=== PATIENT | female | born 2000 | race Caucasian/White ===

== ENCOUNTER 2025-05-24 19:02 | Emergency (ER) | payer OTHER, SELFPAY ==
--- NOTE | ~2025-05-24 | XR_ITS ---
CLINICAL HISTORY: Coughing. pneumonia? 1 view chest x-ray Comparison: None provided Findings: No consolidation or effusion. Heart size is normal. No acute fracture. IMPRESSION: 1. No acute findings. This document has been electronically signed by: Gomez Dominguez MD on 05/24/2025 19:57:49
--- NOTE | 2025-05-24 19:05 | ECG_ITS ---
Test Reason : cp Blood Pressure : */* mmHG Vent. Rate : 78 BPM Atrial Rate : 78 BPM P-R Int : 154 ms QRS Dur : 92 ms QT Int : 364 ms P-R-T Axes : 63 67 58 degrees QTcB Int : 414 ms Normal sinus rhythm Normal ECG No previous ECGs available Referred By: Generic ED Physician Electronically Signed By: Americo Gonzales
[2025-05-24 19:11] VITALS: BP 114/63; PULSE 79; RESP 16; TEMP 36.6; O2SAT 99; BMI 28.3
--- NOTE | 2025-05-24 19:16 | ED_ITS ---
HPI - Asthma General Chief Complaint: Asthma Stated Complaint: chest pain,asthma,sob Time Seen by Provider: 05/24/25 19:33 Source: patient Mode of arrival: ambulatory Limitations: no limitations History of Present Illness ED Provider: Melita Duarte PA-C HPI Narrative: Patient is a 25 year old assigned female at with a history of asthma presenting to the emergency department today with a cough, wheezing, and chest tightness. Patient states that over the last week she has had wheezing, chest tightness, and a cough. Patient denies any other complaints at this time. Related Data Previous Rx's ?Medication ?Instructions ?Recorded albuterol sulfate 1.25 mg/3 mL 1.25 mg (3 mL) inhalati on QID PRN 05/24/25 solution for nebulization shortness of breath or wheez ing #90 mL albuterol sulfate 90 mcg/actuation 1 inh inhalation QI D PRN shortness 05/24/25 aerosol inhaler (Ventolin HFA) of breath or wheezing # 8.5 grams prednisone 20 mg tablet 40 mg (2 x 20 mg) PO DAILY C OPD 05/24/25 exacerbation 5 days #10 tabs Allergies Allergy/AdvReac Type Severity Reaction Status Date / Time benzonatate Allergy Difficulty Verified 05/24/25 19:14 Breathing peanut Allergy Rash Verified 05/24/25 19:14 Penicillins Allergy Unknown Verified 05/24/25 19:14 shellfish derived (shellfish) Allergy Rash Verified 05/24/25 19:14 topiramate Allergy Palpitation Verified 05/24/25 19:14 s Review of Systems Constitutional: Constitutional: Reports as per HPI Eyes: Eyes: Reports as per HPI ENT: Reports as per HPI Cardiovascular: Cardiovascular: Reports as per HPI Respiratory: Respiratory: Reports as per HPI Gastrointestinal: Gastrointestinal: Reports as per HPI Genitourinary: Genitourinary: Reports as per HPI Musculoskeletal: Musculoskeletal: Reports as per HPI Integumentary/Breasts: Skin/Breast: Reports as per HPI Neurologic: Reports as per HPI Psychiatric: Psychiatric: Reports as per HPI Endocrine: Endocrine: Reports as per HPI Hematologic/Lymphatic: Hematologic/Lymphatic: Reports as per HPI Allergic/Immunologic: Allergic/Immunologic: Reports as per HPI PMFSH Past Medical History Attestation statement: The following information was validated with the patient. Source: old records reviewed and nursing notes reviewed Social History Social History Smoked in Last 30 Days: No Use of substances other than those prescribed or required for medical reasons: No Advance Directives: No Advance Directives Information Provided: No Physical Exam Vital Signs: Vital Signs: Last Vital Signs Temp 98.2 F 05/24/25 20:46 Pulse 77 05/24/25 20:46 Resp 16 05/24/25 20:46 BP 124/84 05/24/25 20:46 Pulse Ox 95 05/24/25 20:46 O2 Del Method Room Air 05/24/25 20:46 BMI result Body Mass Index 28.3 Const: General: cooperative, no acute distress, alert and awake Nutritional Appearance: well nourished Orientation/consciousness: patient oriented x3 HEENT: Head: Yes normal to inspection and Yes atraumatic Ears: hearing grossly normal bilaterally and external ears normal General nose exam: Normal external nose present, no nasal discharge noted and no epistaxis Face and sinus: Yes normal facial exam, No abrasion and No laceration Mouth: Normal oral and palatal mucosa present, no drooling and no muffled voice Eyes: General: appearance normal, both eyes and all related structures Periorbital: periorbital findings normal Eyelids: Yes eyelids normal Conjunctivae: conjunctivae normal Pupils: Equal, round and reactive pupils present EOM: EOMs intact bilaterally Neck: Neck: Yes normal visual inspection and Yes full ROM Resp: Effort & Inspection: normal respiratory effort and able to speak in complete sentences Neuro: General: patient oriented x3, moves all extremities and CN's II-XI intact bilaterally Cranial nerves: Yes Equal, round and reactive pupils present Cognition (Neuro): normal cognition Extrem: General: Yes normal to inspection, Yes full ROM and Yes capillary refill normal Psych: Appearance: grossly normal Mental Status: mental status grossly normal Affect: normal affect Attitude: cooperative Thought process: Normal thought process present Thought content: Normal thought content present Insight: Good insight present (Psych) Course Course Course Narrative: RME: 25-year-old female presents to ED for coughing with 1 week and chest tightness. Patient states in his albuterol inhaler. Patient states wheezing. Chest x-ray COVID influenza strep ordered. Vital signs stable Medications Administered Discontinued Medications Generic Name Dose Route Start Last Admin Trade Name Freq PRN Reason Stop Dose Admin Albuterol Sulfate 2.5 mg/ 0 mg 05/24/25 19:48 05/24/25 19:56 Albuterol/Ipratropium 3 ml INHALE 05/24/25 19:49 5 dose ONCE ONE Administration Methylprednisolone Sodium Succinate 60 mg 05/24/25 19:32 05/24/25 19:49 Methylprednisolone Sod Succ 125 Mg/2 Ml Vial IM 05/24/25 19:33 60 mg ONCE ONE Administration Medical Decision Making Medical Decision Making [facility] Narrative: Patient is a 25 year old assigned female at with a history of asthma presenting to the emergency department today with a cough, wheezing, and chest tightness. Patient's physical exam was as noted in the physical exam portion of this note. Patient's COVID-19, influenza, and strep tests were unremarkable. Patient's chest x-ray showed no acute process. Patient's clinical presentation is most consistent with an asthma exacerbation. I explained my physical exam findings as well as all test results to the patient. I answered all questions asked by the patient. Patient received solu-medrol and a breathing treatment which she states helped her symptoms significantly. I stressed the importance of the patient taking her medication as directed (either prescribed or as the over the counter packaging recommends). I stressed the importance of the patient following up with her primary care provider. I stressed the importance of the patient returning to the emergency department immediately if her symptoms were to worsen or if she were to develop any dizziness, shortness of breath, difficulty breathing, chest pain, blurry vision, loss of vision, nausea, vomiting, abdominal pain, fever, chills, back pain, or any other complaints. Patient verbalized agreement and understanding with this treatment plan and disc harge. Differential Diagnosis Differential Diagnoses: The differential diagnosis associated with the presentation includes Cough Asthma exacerbation Viral illness COVID-19 Influenza Admission/Observation Consideration of admission/observation: Escalation of care including admission/observation considered Patient would have been admitted to the hospital had her work up had any findings where hospital admission was appropriate and her clinical presentation warranted hospital admission. Lab Data [facility] Lab Attestation statement: I reviewed the patient's lab results. My interpretation of these results are in the MDM Rationale portion of this note. Labs: Lab Results 05/24/25 Range/Units 19:22 COVID-19 ([facility]) Negative (Negative) COVID-19 Clin Com See Note Influenza Type A ([facility]) Negative (Negative) Influenza Type B (PERLA) Negative (Negative) Influenza A & B Note See Note S. pyogenes GrpA [facility] Negative (Negative) Independent Interpretation I performed an independent interpretation of an: Plain X-Ray Interpretation: My interpretation is in agreement with the radiologist's impression of this imaging study. Reason for Exam: Coughing. pneumonia? CLINICAL HISTORY: Coughing. pneumonia? 1 view chest x-ray Comparison: None provided Findings: No consolidation or effusion. Heart size is normal. No acute fracture. IMPRESSION: 1. No acute findings. This document has been electronically signed by: Gomez Dominguez MD on 05/24/2025 19:57:49 Dictated By: Gomez Dominguez MD Signed By: Electronically signed by Gomez Dominguez MD 05/24/251957 Radiology Impression Discussion of test interpretation with radiology: I have reviewed the radiologist's reading. Discharge Plan Discharge Clinical Impression: Asthma with acute exacerbation Patient Disposition: Home, Self-Care Instructions: Asthma (DC) Additional Instructions: IF you are prescribed home medications and/or you are taking over the counter medications at home - it is very important you continue to do so as prescribed / directed unless told otherwise. Follow up with a primary care provider. Return to the emergency department immediately if your symptoms worsen or if you develop any numbness, tingling, dizziness, shortness of breath, difficulty breathing, chest pain, blurry vision, loss of vision, nausea, vomiting, abdominal pain, fever, chills, back pain, or any other complaints. If you do not have a primary care provider - call any of the below numbers to establish and follow up with a primary care provider. [facility] [place] [phone] [place] [address] [place], [address] [facility] ([address] [place]) [phone] [address] [facility], [address] [place], [address] [facility] ([address] [place]) [phone] [address] [facility], [address] [place], [address] [facility] ([place]) [phone] [place] [address], [address] [facility], [address] [facility] [phone] [address] [facility], [address] Please see the information below about our Patient Portal. If you are not yet enrolled in the [facility] Patient Portal, you will receive an enrollment email invitation following your visit to any [facility] setting. You may also self-enroll in the Patient Portal by visiting our website: [email or web address] The following information is required to access the Patient Portal: - Your [facility] Medical Record Number - Your personal home email address (must match what is in your electronic medical record, Registration staff can assist with this) - Name - Date of Capabilities of the Patient Portal: - Message some providers - View upcoming appointments - Access your health summary, medical history, and visit history - View current conditions and allergies - View procedure and lab results - View your medications, including guidelines, side effects, and precautions - Complete pre-appointment questionnaires requested by your provider - Ready summary reports of your office visits and procedures To access the Patient Portal Mobile Mary, follow these directions: - Search Shopify in the Mary Store or Google Exacaster Store - Download the Mary - Search for [facility] - Enter your login/password Prescriptions: New prednisone 20 mg tablet 40 mg PO DAILY 5 Days Qty: 10 0RF albuterol sulfate [Ventolin HFA] 90 mcg/actuation HFA aerosol inhaler 1 inh inhalation QID PRN (Reason: shortness of breath or wheezing) Qty: 8.5 0RF albuterol sulfate 1.25 mg/3 mL solution for nebulization 1.25 mg inhalation QID PRN (Reason: shortness of breath or wheezing) Qty: 90 0RF Stand Alone Forms: Work/School Release Interventions: ED Discharge Assessment Last Done: 05/24/25 20:46 Discharge Date/Time: 05/24/25 20:47 Print Language: Amharic
[2025-05-24 19:35] LABS: IDNOW Serial# 08D9AD1C; Strep A Nucleic Acid Negative (Negative)
[2025-05-24 19:46] LABS: COVID-19 Test Negative (Negative); IDNOW Serial# 55D5AD1C
[2025-05-24 19:51] VITALS: BP 118/93; PULSE 74; RESP 20; TEMP 36.9; O2SAT 100
[2025-05-24] MEDS: Albuterol Sulfate 2.5 MG, Albuterol/Iprat 2.5/0.5MG 3 ML 3 ML INHALE (19:56)
[2025-05-24 19:57] VITALS: PULSE 77; O2SAT 18
[2025-05-24 20:03] LABS: IDNOW Serial# 55D5AD1C; Influenza B2 Negative (Negative)
--- OUTSIDE RECORDS SUMMARY | 2025-05-24 20:30 | XMS_ITS | Clinical Summary ---
Author Organization [facility] Address [address] [place] [address] Care Team Providers Care Commodity Lead Name Role Phone No, Pcp MD Primary Care Provider Unavailabl e Allergies Active Allergy Reactions Criticality Noted Date Comments Peanut Low 09/09/2016 Itchy throat Penicillins Anaphylaxis High 09/09/2016 Benzonatate Anaphylaxis High 04/11/2024 Topiramate Palpitations Low 04/11/2024 Medications albuterol (PROVENTIL HFA;VENTOLIN HFA) 90 mcg/actuation inhaler Inhale 2 puffs every 4 (four) hours as needed for wheezing. Active bacitracin zinc topical 500 unit/gram ointment Apply topically 2 (two) times a day. 120 g 4 Active albuterol (PROVENTIL HFA;VENTOLIN HFA) 90 mcg/actuation HFA inhaler Inhale 2 (two) puffs by mouth every 4 (four) hours as needed for wheezing. 18 g 4 Active Active Problems Problem Noted Date Diagnosed Date Asthma Overview (09/09/2016): mild intermittent; uses inhaler 2x/month; no nighttime symptoms; previously on singulair; since childhood Eczema Immunizations Name Administration Dates Next Due DTAP 04/17/2003, 0,1999,07/17,1999 HPV Quadrivalent 05/11/2016 HPV9 09/09/2016 Hepatitis B 1999,1999,1999 Hib PRP (3 dose) 03/20/2000, 0,1999,05/14 IPV 04/17/2003, 0,1999,05/17 Influenza Quadrivalent Prese rvative Free (IM) 09/09/2016 Influenza Unspecified 07/20/2005,04/29/2004,09/09 Meningococcal B Recombinant OMV, 2-Dose (Bexsero) 09/09/2016,05/11/2016 Meningococcal Conjugate MCV4 P (Menactra) 09/09/2016 Pneumococcal Unspecified 10/26/2000,06/22/2000 Tdap 08/27/2010 Varicella 10/24/2007,06/22/2000 Family History Medical History Relation Name Comments ADD / ADHD Brother 21 Asthma Father 55 Carpal tunnel syndrome Mother 47 Migraines Mother 47 Relation Name Status Comments Brother 21 Alive Father 55 Alive Mother 47 Alive Social History Tobacco Use Types Packs/Day Years Used Date Smoking Tobacco: Never Alcohol Use Standard Drinks/Week Comments No 0 (1 standard drink = 0.6 oz pur e alcohol) Comments Unknown Sex and Gender Information Value Date Recorded Sex Assigned at Not on file Legal Sex Female 11:53 PM EST Gender Identity Not on file Sexual Orientation Not on file Last Filed Vital Signs Vital Sign Reading Time Taken Comments Blood Pressure 121/59 01/24/2025 8:47 AM EDT Pulse 75 01/24/2025 8:47 AM EDT Temperature 36.3 C (97.4 F) 01/24/2025 8:47 AM EDT Respiratory Rate 18 01/24/2025 8:47 AM EDT Oxygen Saturation 98% 01/24/2025 8:47 AM EDT Inhaled Oxygen Concentration - - Weight 83.9 kg (185 lb) 01/24/2025 2:06 AM EDT Height 172.9 cm (5' 8.07 ) 09/09/2016 3:00 PM ES T Body Mass Index - - Plan of Treatment Health Maintenance Due Date Last Done Comments HEPATITIS C SCREENING 2016 PNEUMOCOCCAL VACCINE (1 of 2 - PCV) 2018 03/15/2001, 10/26/2000, 10/26/2000, Additional history exists Cervical Cancer Screening 2020 Pap Smear 2020 DTAP/TDAP/TD VACCINES (7 - Td or Tdap) 08/27/2020 08/27/2010, 04/17/2003, 03/20/2000, Additional history exists INFLUENZA VACCINE (#1) 2025 7, 04/25/2014, 08/18/2011, Additional history exists COVID-19 IMMUNIZATION (1 - 2023-25 season) 2025 ZOSTER VACCINE (1 of 2) 2049 10/24/2007, 06/22 RSV IMMUNIZATION (1 - 1-dose 75+ series) 2074 HEPATITIS B VACCINES Completed 1999, 1999, 1999, Additional history exists HIB VACCINES Completed 03/20/2000, 03/09, 03/20/2000, Additional history exists IPV VACCINES Completed 04/17/2003, 04/2000, 1999, Additional history exists MMR VACCINES Completed 04/17/2003, 03/20/2000 VARICELLA VACCINES Completed 10/24/2007, 06/22/2000 HEPATITIS A VACCINES Completed 08/18/2011, 08/27/19 11 MENINGOCOCCAL ACYW VACCINE Completed 09/09/2016, MENINGOCOCCAL B VACCINE Completed 09/09/2016, 05/11 HPV VACCINE Completed 06/10/2018, 08/2016, 05/11/2016, Additional history exists ROTAVIRUS VACCINES Aged Out No longer eligible based on patient's age to complete this topic Insurance [facility] CIG[employer] Care Teams Commodity Lead Relationship Specialty Start Date End Date No, MD Ayush No Address [place] [address] PCP - General 01/24/25
--- OUTSIDE RECORDS SUMMARY | 2025-05-24 20:30 | XMS_ITS ---
Author Name [facility] Organization Unknown Results Test Name/Text Value Interpretation Date Range Source Calcium Oxalate Crystals PRESENT Abnormal 01/24/2025 - [facility] Squamous Epith Cells Urine many 01/24/2025 - [facility] Mucous Urine PRESENT Abnormal 01/24/2025 - [facility] Red Blood Cells Urine 7.0 /HPF Above high normal 01/24/2025 0 - 5 [facility] White Blood Cells Urine 4.0 /HPF 01/24/2025 0 - 6 [facility] pH Urine 5.0 01/24/2025 5 - 8 [facility] Blood Urine negative 01/24/2025 - [facility] Leukocyte Est Urine 1+ Abnormal 01/24/2025 - [facility] Specific [place] Urine 1.028 01/24/2025 1.01 - 1.03 [facility] Color Urine yellow 01/24/2025 - [facility] Appearance Urine slt cldy 01/24/2025 - [facility] Urobilinogen Urine negative 01/24/2025 - [facility] Bilirubin Urine negative 01/24/2025 - [facility] Protein Urine 30.0 MG/DL Abnormal 01/24/2025 - 10 [facility] Nitrite level negative 01/24/2025 - [facility] Glucose Urine negative 01/24/2025 - [facility] Ketone Urine negative 01/24/2025 - [facility] UTI Symptoms Lower abdominal 01/24/2025 [facility] Patient Diagnosis None of these 01/24/2025 [facility] ABORh Type A POS 01/24/2025 [facility] Antibody Screen NEG 01/24/2025 [facility] Quantitative BHCG <2.4 MIU/ML 01/24/2025 0 - 8 [facility] Test Serum Qual Negative 01/24/2025 - [facility] Creatinine 0.97 MG/DL 01/24/2025 0.44 - 1.03 [facility] eGFR 83.0 mL/min/1.73m 2 Below low normal 01/24/2025 90 - [facility] BUN Creatinine Ratio 16.0 01/24/2025 [facility] BUN 16.0 MG/DL 01/24/2025 6 - 24 [facility] Anion Gap 7.0 01/24/2025 3 - 13 [facility] CO2 24.0 MEQ/L 01/24/2025 20 - 29 [facility] Glucose 90.0 MG/DL 01/24/2025 67 - 99 [facility] CA 9.4 MG/DL 01/24/2025 8.4 - 10.2 [facility] NA 140.0 MEQ/L 01/24/2025 135 - 145 [facility] K Level 4.2 MEQ/L 01/24/2025 3.6 - 5.1 [facility] Chloride 109.0 MEQ/L 01/24/2025 98 - 110 [facility] Magnesium Level 1.8 mEq/L 01/24/2025 1.3 - 1.9 [facility] AST 18.0 IU/L 01/24/2025 12 - 52 [facility] Bili Direct 0.1 MG/DL 01/24/2025 0 - 0.4 [facility] ALT 11.0 IU/L 01/24/2025 7 - 49 [facility] Alkaline Phosphatase 47.0 IU/L 01/24/2025 39 - 117 [facility] Bili Total 0.3 MG/DL 01/24/2025 0.1 - 1.2 [facility] Total Protein 8.2 G/DL 01/24/2025 6.1 - 8.3 [facility] Albumin 4.7 G/DL 01/24/2025 3.4 - 5.1 [facility] Lipase Level 17.0 IU/L 01/24/2025 13 - 55 [facility] RBC 4.54 x10 12/L 01/24/2025 3.8 - 5.1 [facility] Eosinophil (percent) 3.6 % 01/24/2025 [facility] Platelet Count 297.0 x10 9/L 01/24/2025 168 - 382 [facility] Immature Granuloctyes (absolute) 0.0 x10 9/L 01/24/2025 0 - 0.1 [facility] Basophil (absolute) 0.1 x10 9/L 01/24/2025 0 - 0.1 [facility] Lymphocyte (absolute) 1.8 x10 9/L 01/24/2025 1 - 3.3 [facility] Eosinophil (absolute) 0.3 x10 9/L 01/24/2025 0 - 0.4 [facility] MCHC 34.7 g/dL Above high normal 01/24/2025 29.5 - 34.2 [facility] Lymphocyte (percent) 25.5 % 01/24/2025 [facility] NRBC (absolute) 0.0 x10 9/L 01/24/2025 [facility] Monocyte (percent) 8.9 % 01/24/2025 [facility] Neutrophil (percent) 60.9 % 01/24/2025 [facility] Neutrophil (absolute) 4.2 x10 9/L 01/24/2025 1.9 - 6.7 [facility] HGB 14.4 g/dL 01/24/2025 11.2 - 14.9 [facility] MCV 91.4 fL 01/24/2025 85.2 - 100.2 [facility] WBC 6.9 x10 9/L 01/24/2025 4.2 - 10 [facility] MCH 31.7 pg 01/24/2025 27 - 32.4 [facility] Basophil (percent) 1.0 % 01/24/2025 [facility] HCT 41.5 % 01/24/2025 36 - 48 [facility] MPV 10.6 fL 01/24/2025 9.6 - 12.5 [facility] NRBC (percent) 0.0 % 01/24/2025 - [facility] Immature Granuloctyes (percent) 0.1 % 01/24/2025 [facility] RDW 12.3 % 01/24/2025 11.8 - 14.4 [facility] SP Monocyte (absolute) 0.6 x10 9/L 01/24/2025 0.3 - 0 .9 [facility] History of Medication Use Medication Directions Dispensed Refills Start Date End Date Stat us albuterol (PROVENTIL HFA;VENTOLIN HFA) 90 mcg/actuation HFA inhaler Inhale 2 (two) puffs by mouth every 4 (four) hours as needed for wheezing. 04/11/2024 active bacitracin zinc topical 500 unit/gram ointment Apply topically 2 (two) times a day. 04/11/2024 active Allergies Allergen Reaction Severity Comment Documented Date Source Statu s TOPIRAMATE PALPITATIONS 04/11/2024 [facility] ac tive PENICILLINS ANAPHYLAXIS 09/09/2016 [facility] ac tive BENZONATATE ANAPHYLAXIS [facility] PEANUT Itchy throat [facility] Problems Problem Status Onset Date Problem Type Date of Resolution Source Abdominal cramping active EncounterDiagnosisAct [facility] Eczema active ProblemAct [facility] Asthma active ProblemAct [facility] H Immunizations Vaccine Date Source Lot Number Status HPV9 09/09/2016 [facility] [id number] completed Influenza Quadrivalent Prese rvative Free (IM) 09/09/2016 [facility] [id number] completed Meningococcal B Recombinant OMV, 2-Dose (Bexsero) 09/09/2016 [facility] [id number] completed Meningococcal Conjugate MCV4P (Menactra) 09/09/2016 [facility] [id number] completed HPV Quadrivalent 05/11/2016 [facility] complete d Meningococcal B Recombinant OMV, 2-Dose (Bexsero) 05/11/2016 [facility] completed Tdap 08/27/2010 [facility] completed Varicella 10/24/2007 [facility] completed Influenza Unspecified 07/20/2005 [facility] com pleted Influenza Unspecified 04/29/2004 [facility] com pleted Influenza Unspecified 09/27/2003 [facility] com pleted DTAP 04/17/2003 [facility] completed IPV 04/17/2003 [facility] completed Pneumococcal Unspecified 10/26/2000 [facility] completed Pneumococcal Unspecified 06/22/2000 [facility] completed Varicella 06/22/2000 [facility] completed DTAP 03/20/2000 [facility] completed Hib PRP (3 dose) 03/20/2000 [facility] complete d DTAP 1999 [facility] completed Hepatitis B 1999 [facility] completed Hib PRP (3 dose) 1999 [facility] complete d IPV 1999 [facility] completed DTAP 1999 [facility] completed Hepatitis B 1999 [facility] completed Hib PRP (3 dose) 1999 [facility] complete d IPV 1999 [facility] completed IPV 1999 [facility] completed DTAP 1999 [facility] completed Hepatitis B 1999 [facility] completed Hib PRP (3 dose) 1999 [facility] complete d Encounters Encounter Type Encounter Reason Primary Diagnosis Location Date Emergency Abdominal cramping Abdominal cramping [facility] 01/24/2025 Ambulatory [facility], [facility] 10/13/2023 Care Team Organization Name Specialty Phone Email Start Date End Da te [facility] 01/24/2025 02/22/2025 [facility] 01/24/2025
[2025-05-24 20:46] VITALS: BP 124/84; PULSE 77; RESP 16; TEMP 36.8; O2SAT 95
== END 2025-05-24 20:47 | disposition home or self-care (01) ==
PROVIDERS: Physician Assistant; Emergency Provider Emergency Medicine
DX: J45.901 Unspecified asthma with (acute) exacerbation (principal); R06.02 Shortness of breath; R07.9 Chest pain, unspecified; R05.9 Cough, unspecified; Z03.818 Encounter for observation for suspected exposure to other biological agents ruled out
CPT/HCPCS: 71045; 87502; 87635; 87651; 93005; 94640; 96372; 99284; 99285; J2919

== ENCOUNTER → 2025-05-24 19:05 | Outpatient (BNV) | payer OTHER, SELFPAY | PROVIDERS: Emergency Provider Emergency Medicine; Visit Provider Internal Medicine Cardiovascular Disease | DX: R07.9 Chest pain, unspecified (principal) | CPT/HCPCS: 93010 ==

== ENCOUNTER → 2025-05-24 19:17 | Outpatient (BNV) | payer OTHER, SELFPAY | PROVIDERS: Visit Provider Radiology Diagnostic Radiology | DX: R05.9 Cough, unspecified (principal) | CPT/HCPCS: 71045 ==